=== PATIENT | female | born 1975 | race American Indian/Alaskan Native ===

== ENCOUNTER 2022-04-18 11:46 | Emergency (ER) | payer SELFPAY ==
[2022-04-18 12:06] VITALS: BP 166/112
--- NOTE | 2022-04-18 12:57 | XRay Report ---
CHEST 2 VIEWS INDICATION / CLINICAL INFORMATION: Chest Pain. COMPARISON: None available. FINDINGS: SUPPORT DEVICES: None. HEART / MEDIASTINUM: No significant abnormality. LUNGS / PLEURA: No significant pulmonary or pleural abnormality. No pneumothorax. ADDITIONAL FINDINGS: No significant additional findings. IMPRESSION: 1. No acute findings. Signer Name: Brian Godinez Jr, MD Signed: 04/18/2022 12:53 PM Workstation Name: [id number]
[2022-04-18 13:47] LABS: Mean Corpuscular HGB Conc 30 % (30-34); Platelet Count 342 K/mm3 (140-440); Red Blood Count 4.66 M/mm3 (3.65-5.03)
[2022-04-18 13:48] LABS: Hematocrit 28.4 % (30.3-42.9); Hemoglobin 8.4 gm/dl (10.1-14.3); Mean Corpuscular Volume 61 fl (79-97); Red Cell Distribution Width 21.8 % (13.2-15.2)
[2022-04-18 14:18] LABS: Hyaline Casts,Urine 6 /LPF; Mucus,Urine 3+ /HPF
[2022-04-18 14:25] LABS: Color,Urine Yellow (Yellow)
[2022-04-18 14:35] LABS: BUN/Creatinine Ratio 11; Blood Urea Nitrogen 10 mg/dL (7-17); Calcium 9.7 mg/dL (8.4-10.2); Hemolysis Index 6
[2022-04-18 17:20] LABS: Anisocytosis 1+; Burr Cells Few; Eosinophils % (Manual) 0 % (0.0-4.3); Hypochromasia 3+; Large Platelets Few; Platelet Estimate Consistent w Auto; Target Cells 2+; Tear Drop Cells Few; Total Cells Counted 100
--- NOTE | 2022-04-19 10:53 | Electrocardiograph Report ---
[facility] Test Date: 2022-04-18 Test Time: 12:05:00 Pat Name: KOLE ROBERTS Department: Room: Gender: F [employer]: AF : 1975 Requested By: ED DOC Order Number: [id number] Reading MD: Justin Terry Measurements Intervals [place] Rate: 90 P: 74 PA: 156 QRS: 7 QRSD: 97 T: 60 QT: 445 QTc: 544 Interpretive Statements Sinus rhythm Probable left atrial enlargement Prolonged QT interval No previous ECG available for comparison Electronically Signed On 04-19-2022 10:52:54 EDT by Justin Terry
== END 2022-04-19 02:00 | disposition left against medical advice (07) ==
LOC: ED 11:46
DX: R07.9 Chest pain, unspecified (principal); Z53.21 Procedure and treatment not carried out due to patient leaving prior to being seen by health care provider
CPT/HCPCS: 36415; 71046; 80048; 81001; 85007; 85025; 93005